=== PATIENT | female | born 1945 | race Two or more races ===

== ENCOUNTER 2019-02-19 14:10 | Emergency (ER) | payer OTHER ==
[~2019-02-19] VITALS: Ht 162.6 cm; Wt 77.1 kg
[2019-02-19] MEDS ORDERED: METOPROLOL SUCC50 MG (14:44)
[2019-02-19] MEDS ORDERED: LOSARTAN POTAS100 MG (14:45)
== END 2019-02-19 17:03 | disposition home or self-care (01) ==
LOC: ER 14:10
DX: K94.29 Other complications of gastrostomy (principal)